=== PATIENT | female | born 1955 | race Caucasian/White ===

== ENCOUNTER → 2021-03-06 | Day surgery (SDC) | payer BC ==
[2021-03-04 09:57] VITALS: BMI 34.3
[2021-03-06 11:52] VITALS: BP 137/80; PULSE 80; RESP 18; TEMP 97.7
== END ==
LOC: ORWHC2ENDO 11:38
PROVIDERS: ATTEND Internal Medicine Gastroenterology
DX: K21.9 Gastro-esophageal reflux disease without esophagitis (principal)
CPT/HCPCS: 91010